=== PATIENT | female | born 1970 | race Caucasian/White ===

== ENCOUNTER 2023-05-21 11:32 | Outpatient (CLI) | payer OTHER ==
[2023-05-21 12:24] LABS: ALBUMIN 3.5 G/DL (3.4-5.0); ANION GAP 11 (8-16); BLOOD UREA NITROGEN 12 MG/DL (7-18); BUN/CREATININE RATIO 15.2 (10.0-20.0); CALCIUM 8.8 MG/DL (8.5-10.1); CHLORIDE 107 MMOL/L (99-107); CREATININE 0.79 MG/DL (0.40-0.90); GLUCOSE 93 MG/DL (70-104); POTASSIUM 4.4 MMOL/L (3.5-5.1); SODIUM 139 MMOL/L (135-145); TOTAL CARBON DIOXIDE 21.3 MMOL/L (24-32); eGFR 76 ML/MIN
[2023-05-21 12:43] LABS: HEMOGLOBIN A1C 5.4 % (4.5-6.2)
== END 2023-05-21 23:59 | disposition home or self-care (01) ==
LOC: LAB 11:32
PROVIDERS: ATTEND Family Medicine
DX: E03.9 Hypothyroidism, unspecified (principal); E66.8 Other obesity; R53.83 Other fatigue; E05.40 Thyrotoxicosis factitia without thyrotoxic crisis or storm
CPT/HCPCS: 36415; 80048; 83036; 84439; 84443